=== PATIENT | female | born 1975 | race Caucasian/White ===

== ENCOUNTER 2020-02-11 01:15 | Emergency (ER) | payer SELFPAY ==
[2020-02-11 01:46] VITALS: BP 126/100; PULSE 78
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
== END 2020-02-11 02:04 | disposition home or self-care (01) ==
LOC: JD.ED 01:15
DX: T51.91XA Toxic effect of unspecified alcohol, accidental (unintentional), initial encounter (principal); Z88.0 Allergy status to penicillin
CPT/HCPCS: 99282; 99283

== ENCOUNTER 2020-02-28 16:49 | Emergency (ER) | payer SELFPAY ==
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
[2020-02-28 17:58] LABS: ACETAMINOPHEN 0 ug/mL (10-30)
[2020-02-28 18:46] VITALS: BP 105/62; PULSE 69
== END 2020-02-28 18:57 ==
LOC: JD.ED 16:49
DX: F20.9 Schizophrenia, unspecified (principal); F41.9 Anxiety disorder, unspecified; F31.9 Bipolar disorder, unspecified; F17.210 Nicotine dependence, cigarettes, uncomplicated; Z88.0 Allergy status to penicillin; Z79.899 Other long term (current) drug therapy
CPT/HCPCS: 36415; 80053; 80306; 80307; 81025; 84443; 85007; 85027; 93005; 99285-25

== ENCOUNTER 2021-05-12 14:21 | Emergency (ER) | payer MEDICAID ==
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
[2021-05-12 16:04] LABS: ACETAMINOPHEN 0 ug/mL (10-30)
[2021-05-12 18:39] VITALS: BP 118/78; PULSE 81
== END 2021-05-12 16:00 ==
LOC: JD.ED 14:21
DX: Z00.8 Encounter for other general examination (principal); Z88.0 Allergy status to penicillin; Z72.0 Tobacco use; Z20.822 Contact with and (suspected) exposure to COVID-19
CPT/HCPCS: 36415; 80053; 80143; 80179; 80306; 80307; 81025; 84443; 85007; 85027; 99283; 99283-25; U0002

== ENCOUNTER 2021-06-03 13:12 | Emergency (ER) | payer MEDICAID ==
[2021-06-03 13:25] VITALS: BP 114/70; PULSE 72
[2021-06-03 14:48] LABS: ACETAMINOPHEN 0 ug/mL (10-30)
--- NOTE | 2021-06-03 15:41 | EDM.PDOCBH ---
ED HPI GENERAL MEDICAL PROBLEM - General Chief Complaint: Behavioral/Psych Stated Complaint: MED CLEARANCE Time Seen by Provider: 06/03/21 15:17 Source of Information: Reports: Patient, Police, RN Notes Reviewed, Other ([facility] paperwork/[facility] Human services staff) History Limitations: Reports: No Limitations - History of Present Illness INITIAL COMMENTS - FREE TEXT/NARRATIVE: Patient is a 45-year-old female who presents to the ER via [facility] department for evaluation of her delusions and being on a committal. Patient is to return back to the [facility], as she is under committal for her medic delusional state. [facility] , and has subsequently been in the community, [place] very paranoid behaviors, staff at [facility] state that she is going around toilets, trying to open [place], they states she is on an alternative treatment order, and is to [facility] for [facility] medicine management. Patient is denying any fevers or chills, cough or shortness of breath, nausea/vomiting/diarrhea. Patient states that she met with Dr. Snider yesterday, and that Dr. Snider wants her to take all of these medications, that she does not want to take the medications. - Related Data Allergies Allergy/AdvReac Type Severity Reaction Status Date / Time Penicillins Allergy Severe Hives Verified 06/03/21 13:25 Home Meds: Home Meds Non-Formulary Medication [NF Drug] 0 each ASDIRECTED 05/12/21 [History] Past Medical History Gastrointestinal History: Reports: Chronic Constipation, Other (See Below) Other Gastrointestinal History: had stomach issues as a child and had upper GI and lower GI and doctor told her dad to take her home nothing is wrong just give her beer. 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 ED EXAM, BEHAVIORAL HEALTH - Physical Exam Exam: See Below Exam Limited By: No Limitations General Appearance: Alert, WD/WN, No Apparent Distress Respiratory/Chest: No Respiratory Distress, Lungs Clear, Normal Breath Sounds, No Accessory Muscle Use, Chest Non-Tender Cardiovascular: Normal Peripheral Pulses, Regular Rate, Rhythm, No Edema GI/Abdominal: Normal Bowel Sounds, Soft, Non-Tender Neurological: Alert, Normal Mood/Affect, Normal Cognition, No Motor/Sensory Deficits Psychiatric: Alert, Normal Mood, Paranoid Thoughts. No: Suicidal Plan, Suicidal Thoughts, Auditory Hallucinations, Visual Hallucinations, Pressured Speech, Threatening Behavior Skin Exam: Warm, Dry, Intact, Normal color, No rash #1 Interpretation EKG Date: 06/03/21 Time: 13:36 Rhythm: NSR Rate (Beats/Min): 52 [place]: Normal P-Wave: Present QRS: Normal ST-T: Normal QT: Normal Comparison: NA - No Prior EKG EKG Interpretation Comments: No obvious ischemia or acute ST changes noted, reviewed by myself and Dr. Perez. COURSE, BEHAVIORAL HEALTH COMP - Course Vital Signs: Last Vital Signs Temp 97.9 F 06/03/21 13:23 Pulse 72 06/03/21 13:23 Resp 16 06/03/21 13:23 BP 114/70 06/03/21 13:23 Pulse Ox 98 06/03/21 13:23 Orders, Labs, Meds: Active Orders 24 hr Category Date Time Status EKG Documentation Completion [RC] STAT Care 06/03/21 13:20 Active Laboratory Tests 06/03/21 06/03/21 06/03/21 Range/Units 13:15 13:30 13:30 WBC (3.98-10.04) K/mm3 RBC (3.98-5.22) M/mm3 Hgb (11.2-15.7) gm/dl Hct (34.1-44.9) % MCV (79.4-94.8) fl MCH (25.6-32.2) pg MCHC (32.2-35.5) g/dl RDW Std Deviation (36.4-46.3) fL Plt Count (182-369) K/mm3 MPV (9.4-12.3) fl Neut % (Auto) (34.0-71.1) % Lymph % (Auto) (19.3-51.7) % Citrus % (Auto) (4.7-12.5) % Eos % (Auto) (0.7-5.8) Baso % (Auto) (0.1-1.2) % Neut # (Auto) (1.56-6.13) K/mm3 Lymph # (Auto) (1.18-3.74) K/mm3 Citrus # (Auto) (0.24-0.36) K/mm3 Eos # (Auto) (0.04-0.36) K/mm3 Baso # (Auto) (0.01-0.08) K/mm3 Sodium (136-145) mEq/L Potassium (3.5-5.1) mEq/L Chloride (98-107) mEq/L Carbon Dioxide (21-32) mEq/L Anion Gap (5-15) BUN (7-18) mg/dL Creatinine (0.55-1.02) mg/dL Est Cr Clr Drug Dosing Estimated GFR (MDRD) (>60) mL/min BUN/Creatinine Ratio (14-18) Glucose (70-99) mg/dL Calcium (8.5-10.1) mg/dL Total Bilirubin (0.2-1.0) mg/dL AST (15-37) U/L ALT (14-59) U/L Alkaline Phosphatase (46-116) U/L Total Protein (6.4-8.2) g/dl Albumin (3.4-5.0) g/dl Globulin gm/dL Albumin/Globulin Ratio (1-2) TSH 3rd Generation (0.358-3.74) uIU/mL Urine HCG, Qual Negative (NEGATIVE) Salicylates (2.8-20) mg/dL Urine Opiates Screen Negative (GDIBCD=598) Ur Buprenorphine Scrn Negative (CUTOFF=10) Ur Oxycodone Screen Negative (HKV2XM=211) Urine Methadone Screen Negative (FHUHFL=689) Ur Propoxyphene Screen Negative (DNEXCK=344) Acetaminophen (10-30) ug/mL Ur Barbiturates Screen Negative (UXDWIY=783) Ur Tricyclics Screen Negative (ONEXMR=600) Ur Phencyclidine Scrn Negative (CUTOFF=25) Ur Amphetamine Screen Negative (MNEISS=345) U Methamphetamines Scrn Negative (VWCGVP=450) U Benzodiazepines Scrn Negative (QIAKVH=517) U Cocaine Metab Screen Negative (GMTZJJ=463) U Marijuana (THC) Screen Negative (CUTOFF=50) Ethyl Alcohol (0.00) gm% SARS-CoV-2 RNA (MOUNA) Negative (NEGATIVE) 06/03/21 06/03/21 06/03/21 Range/Units 13:42 13:42 13:42 WBC 6.84 (3.98-10.04) K/mm3 RBC 4.14 (3.98-5.22) M/mm3 Hgb 12.1 (11.2-15.7) gm/dl Hct 39.0 (34.1-44.9) % MCV 94.2 (79.4-94.8) fl MCH 29.2 (25.6-32.2) pg MCHC 31.0 L (32.2-35.5) g/dl RDW Std Deviation 46.4 H (36.4-46.3) fL Plt Count 379 H (182-369) K/mm3 MPV 10.4 (9.4-12.3) fl Neut % (Auto) 63.3 (34.0-71.1) % Lymph % (Auto) 26.6 (19.3-51.7) % Citrus % (Auto) 7.6 (4.7-12.5) % Eos % (Auto) 1.6 (0.7-5.8) Baso % (Auto) 0.6 (0.1-1.2) % Neut # (Auto) 4.33 (1.56-6.13) K/mm3 Lymph # (Auto) 1.82 (1.18-3.74) K/mm3 Citrus # (Auto) 0.52 H (0.24-0.36) K/mm3 Eos # (Auto) 0.11 (0.04-0.36) K/mm3 Baso # (Auto) 0.04 (0.01-0.08) K/mm3 Sodium 141 (136-145) mEq/L Potassium 4.9 (3.5-5.1) mEq/L Chloride 107 (98-107) mEq/L Carbon Dioxide 27 (21-32) mEq/L Anion Gap 11.9 (5-15) BUN 10 (7-18) mg/dL Creatinine 0.7 (0.55-1.02) mg/dL Est Cr Clr Drug Dosing TNP Estimated GFR (MDRD) > 60 (>60) mL/min BUN/Creatinine Ratio 14.3 (14-18) Glucose 98 (70-99) mg/dL Calcium 8.3 L (8.5-10.1) mg/dL Total Bilirubin 0.2 (0.2-1.0) mg/dL AST 13 L (15-37) U/L ALT 23 (14-59) U/L Alkaline Phosphatase 67 (46-116) U/L Total Protein 6.8 (6.4-8.2) g/dl Albumin 3.4 (3.4-5.0) g/dl Globulin 3.4 gm/dL Albumin/Globulin Ratio 1.0 (1-2) TSH 3rd Generation 0.320 L (0.358-3.74) uIU/mL Urine HCG, Qual (NEGATIVE) Salicylates 1.3 L (2.8-20) mg/dL Urine Opiates Screen (XQWXRX=244) Ur Buprenorphine Scrn (CUTOFF=10) Ur Oxycodone Screen (KFR2GF=647) Urine Methadone Screen (ADFSSP=403) Ur Propoxyphene Screen (BREOXJ=172) Acetaminophen 0 L (10-30) ug/mL Ur Barbiturates Screen (OGXURQ=847) Ur Tricyclics Screen (FKWYQW=131) Ur Phencyclidine Scrn (CUTOFF=25) Ur Amphetamine Screen (LKPVMH=469) U Methamphetamines Scrn (EZXASP=254) U Benzodiazepines Scrn (KBGKGL=899) U Cocaine Metab Screen (TQIBHH=542) U Marijuana (THC) Screen (CUTOFF=50) Ethyl Alcohol 0.00 (0.00) gm% SARS-CoV-2 RNA (MOUNA) (NEGATIVE) Discharge vs Psych Eval/Treatment:: 06/03/21 15:39 Patient presents to the ER, under committal orders [facility]. I did review the patient's committal forms with [facility] human services staff, medical clearance has been provided on our behalf, labs are all unremarkable, her TSH was slightly low at 0.320, but I see no medical reason why she could not [facility]. Covid screen is negative, urine drug screen is negative, blood alcohol screen is negative. I will go ahead and contact the provider that I was given the number for and do a doctor to Dr. Rievra and hopefully get them transported via [employer]'s department sometime soon. 06/03/21 16:00 I was able to speak with Dr. Vanessa at the [facility], she did graciously accept the patient in transfer. Departure - Departure Time of Disposition: 15:40 Disposition: DC/Tfer to Psych Hosp/Unit 65 Condition: Fair Clinical Impression: Paranoid behavior, Medical clearance for psychiatric admission - Discharge Information Referrals: PCP,None [Primary Care Provider] - Forms: ED Department Discharge Sepsis Event Note (ED) - Evaluation Sepsis Screening Result: No Definite Risk - Focused Exam Vital Signs: Vital Signs Temp Pulse Resp BP Pulse Ox 06/03/21 13:23 97.9 F 72 16 114/70 98 - My Orders Last 24 Hours: My Active Orders 06/03/21 13:20 EKG Documentation Completion [RC] STAT - Assessment/Plan Last 24 Hours: My Active Orders 06/03/21 13:20 EKG Documentation Completion [RC] STAT
== END 2021-06-03 16:15 ==
LOC: JD.ED 13:12
DX: R46.89 Other symptoms and signs involving appearance and behavior (principal); Z88.0 Allergy status to penicillin; Z20.822 Contact with and (suspected) exposure to COVID-19
CPT/HCPCS: 36415; 80053; 80143; 80179; 80306; 80307; 81025; 84443; 85025; 93005; 93010; 99283; 99285-25; U0002

== ENCOUNTER 2022-12-12 21:06 | Emergency (ER) | payer SELFPAY | END 2022-12-12 21:20 | LOC: JD.ED 21:06 | DX: Z53.21 Procedure and treatment not carried out due to patient leaving prior to being seen by health care provider (principal) ==